=== PATIENT | male | born 1980 | race African-American/Black ===

== ENCOUNTER 2018-09-30 14:11 | Emergency (ER) | payer BC, MEDICAID ==
[~2018-09-30] VITALS: Ht 170.2 cm; Wt 102.0 kg
[2018-09-30] MEDS ORDERED: IBUPROFEN 800MG TABLET PO ONE (17:00)
[2018-09-30] MEDS ORDERED: ACETAMINOPHEN 500MG TABLET PO ONE (17:00)
[2018-09-30] MEDS ORDERED: SODIUM CHLORIDE 0.9% 1,000 ML IV SCH (18:30)
[2018-09-30] MEDS ORDERED: ONDANSETRON HCL 4MG/2ML INJ IV SCH (18:30)
[2018-09-30] MEDS ORDERED: MORPHINE SULFATE 10 MG/ML CPJ IV SCH (18:44)
[2018-09-30] MEDS ORDERED: ONDANSETRON HCL 4MG/2ML INJ IV STA (18:52)
[2018-09-30] MEDS ORDERED: MORPHINE SULFATE 4 MG/ML CPJ (NOT FOR IM USE) IV STA (18:52)
[2018-09-30] MEDS ORDERED: SODIUM CHLORIDE 0.9% 1,000 ML IV ONE (18:52)
[2018-09-30] MEDS ORDERED: MORPHINE SULFATE 10 MG/ML CPJ IV ONE (19:00)
[2018-09-30] MEDS ORDERED: ETOMIDATE 2MG/ML 10ML VIAL IV ONE (19:00)
[2018-09-30 20:04] VITALS: BP 147/100
== END 2018-09-30 20:04 | disposition home or self-care (01) ==
LOC: ER 17:38
DX: S82.851A Displaced trimalleolar fracture of right lower leg, initial encounter for closed fracture (principal); I10 Essential (primary) hypertension; X50.1XXA Overexertion from prolonged static or awkward postures, initial encounter; Y93.89 Activity, other specified; Y92.9 Unspecified place or not applicable
CPT/HCPCS: 27840; 73610; 96374; 96375; 99152; 99285; J2270; J2405; J3490; J7030

== ENCOUNTER 2018-11-02 12:42 | Inpatient (IN) | payer BC, MEDICAID ==
[~2018-11-02] VITALS: Ht 170.2 cm; Wt 96.6 kg
[~2018-11-02 12:42] MED LIST: LACTATED RINGERS 1,000 ML IV SCH
[2018-11-02] MEDS ORDERED: AMLO5TAB88 PO (16:45)
[2018-11-02] MEDS ORDERED: MULT-1241 PO (16:45)
[2018-11-02] MEDS ORDERED: LISI-604 PO (16:45)
[2018-11-02] MEDS ORDERED: ACET-2708 PO (16:45)
[2018-11-02] MEDS ORDERED: BUPIVACAINE HCL/DEXTROSE/PF 0.75% 2ML AMP INJ ONE (17:32)
[2018-11-02] MEDS ORDERED: MORPHINE SULFATE/PF 1MG/ML 10ML AMP ONE ×2 (17:33→17:35)
[2018-11-02] MEDS ORDERED: BUPIVACAINE/EPINEPH/PF 0.25%/0.0005 10ML ONE (17:35)
[2018-11-02] MEDS ORDERED: FENTANYL CITRATE/PF 50MCG/ML 2ML VIAL ONE (17:42)
[2018-11-02] MEDS ORDERED: PROPOFOL 200MG/20ML VIAL IV ONE ×2 (17:42→19:40)
[2018-11-02] MEDS ORDERED: MIDAZOLAM HCL 2 MG/2 ML VIAL ONE (17:42)
[2018-11-02] MEDS ORDERED: DEXAMETHASONE 4MG/ML 1ML VIAL ONE (17:49)
[2018-11-02] MEDS ORDERED: ONDANSETRON HCL 4MG/2ML INJ ONE (18:05)
[2018-11-02] MEDS ORDERED: SODIUM CHLORIDE 0.9% 10ML VIAL ONE (18:06)
[2018-11-02] MEDS ORDERED: EPHEDRINE SULFATE 50MG/ML VIAL ONE (18:06)
[2018-11-02] MEDS ORDERED: CEFAZOLIN SODIUM 1000MG/VIAL ONE (18:06)
[2018-11-02] MEDS ORDERED: LIDOCAINE HCL 1% 20ML VIAL (Pyxis) INJ ONE (18:06)
[2018-11-02] MEDS ORDERED: BACITRACIN 50,000 UNITS/VIAL ONE (18:13)
[2018-11-02] MEDS ORDERED: LABETALOL 5MG/ML SYR 20 MG/4 ML SYRINGE IV PRN (18:15)
[2018-11-02] MEDS ORDERED: MEPERIDINE HCL/PF 25MG/ML CPJ IV PRN (18:15)
[2018-11-02] MEDS ORDERED: ONDANSETRON HCL 4MG/2ML INJ IV PRN ×2 (18:15→22:15)
[2018-11-02] MEDS ORDERED: HYDROMORPHONE HCL/PF 2MG/ML CPJ IV PRN ×3 (18:15→22:30)
[2018-11-02] MEDS ORDERED: CLONIDINE 0.1MG TABLET PO PRN (22:15)
[2018-11-02] MEDS ORDERED: ZOLPIDEM TARTRATE 5MG TABLET PO SCH (22:15)
[2018-11-02] MEDS ORDERED: ACETAMINOPHEN 325MG TABLET PO PRN (22:15)
[2018-11-02] MEDS ORDERED: DIPHENHYDRAMINE 25MG CAPSULE PO PRN (22:15)
[2018-11-02] MEDS ORDERED: HYDROCODONE/ACETAMINOPHEN 10/325MG TABLET PO PRN (22:15)
[2018-11-02] MEDS ORDERED: MAGNESIUM HYDROXIDE 400MG/5ML 30ML UDC PO PRN (22:15)
[2018-11-02] MEDS ORDERED: HYDROMORPHONE PCA 10MG/50ML IV PRN (22:24)
[2018-11-02] MEDS ORDERED: ONDANSETRON INJ IV PRN (22:24)
[2018-11-02] MEDS ORDERED: NALOXONE INJ IV PRN (22:24)
[2018-11-02] MEDS ORDERED: DIPHENHYDRAMINE INJ IV PRN (22:25)
[2018-11-02] MEDS ORDERED: DIPHENHYDRAMINE 50MG/ML VIAL IV ONE (22:45)
[2018-11-02 23:20] VITALS: BP 128/66
[2018-11-03] VITALS: BP 128/66
[2018-11-03] MEDS: CEFAZOLIN 2,000 MG in DEXT 5% WATER 100 ML IV SCH ×2 (03:40→12:45)
[2018-11-03 04:00] VITALS: BP 132/79
[2018-11-03 08:00] VITALS: BP 137/87
[2018-11-03] MEDS: CELECOXIB 200MG CAPSULE PO SCH ×2 (09:32→17:35)
[2018-11-03] MEDS: DOCUSATE SODIUM 100MG CAPSULE PO SCH ×2 (09:32→17:34)
[2018-11-03 12:00] VITALS: BP 140/80
[2018-11-03 16:00] VITALS: BP 136/84
[2018-11-03] MEDS ORDERED: LISINOPRIL 40MG TABLET PO NR (16:45)
[2018-11-03] MEDS: AMLODIPINE 5MG TABLET PO SCH (17:35)
[2018-11-03 20:00] VITALS: BP 170/112
[2018-11-03] MEDS: HYDROCODONE/ACETAMINOPHEN 10/325MG TABLET PO PRN (20:14)
[2018-11-04] VITALS: BP 136/76
[2018-11-04 04:00] VITALS: BP 154/80
[2018-11-04 08:00] VITALS: BP 132/78
[2018-11-04] MEDS ORDERED: ENOXAPARIN 40MG/0.4ML SYR SUBCUT SCH (09:00)
[2018-11-04] MEDS: AMLODIPINE 5MG TABLET PO SCH (09:27)
[2018-11-04] MEDS: CELECOXIB 200MG CAPSULE PO SCH (09:27)
[2018-11-04] MEDS: DOCUSATE SODIUM 100MG CAPSULE PO SCH (09:27)
[2018-11-04] MEDS: HYDROCODONE/ACETAMINOPHEN 10/325MG TABLET PO PRN (09:28)
[2018-11-04 10:35] LABS: HEMATOCRIT 37.9 % (42.0-52.0); HEMOGLOBIN 11.8 g/dL (14.0-18.0); MEAN CORPUSCULAR HEMOGLOBIN 22.7 pg (28.0-32.0); MEAN CORPUSCULAR VOLUME 72.9 fL (80.0-94.0); PLATELET 157 x1000/uL (130-400)
[2018-11-04 10:52] LABS: CHLORIDE 107 mEq/L (98-107)
[2018-11-04 12:00] VITALS: BP 140/87
[2018-11-04] MEDS ORDERED: ENOXAPARIN 30MG/0.3ML SYR SUBCUT SCH (14:00)
[2018-11-04 14:23] VITALS: BP 143/82
== END 2018-11-04 15:23 | disposition home or self-care (01) | DRG 494 ==
LOC: OR 12:42 → 6EST 12:43
PROVIDERS: ADMIT Orthopaedic Surgery; ATTEND Orthopaedic Surgery
PROC: 0QSG04Z Reposition Right Tibia with Internal Fixation Device, Open Approach (ICD-10-PCS; principal; 2018-11-02)
PROC: 0QSJ04Z Reposition Right Fibula with Internal Fixation Device, Open Approach (ICD-10-PCS; 2018-11-02)
PROC: 0SSF04Z Reposition Right Ankle Joint with Internal Fixation Device, Open Approach (ICD-10-PCS; 2018-11-02)
DX: S82.841A Displaced bimalleolar fracture of right lower leg, initial encounter for closed fracture (principal); I10 Essential (primary) hypertension; H91.90 Unspecified hearing loss, unspecified ear; S93.491A Sprain of other ligament of right ankle, initial encounter; F17.200 Nicotine dependence, unspecified, uncomplicated; W01.0XXA Fall on same level from slipping, tripping and stumbling without subsequent striking against object, initial encounter; Y93.89 Activity, other specified; Y92.89 Other specified places as the place of occurrence of the external cause; Y99.8 Other external cause status
CPT/HCPCS: 36415; 73610; 80048; 85027; 97116; 97162; 97166; 97530; 97535; C1713; J0171; J0690; J1100; J1170; J1200; J1650; J2250; J2274; J2405; J2704; J3010; J3490; J7060; Q4051